=== PATIENT | male | born 1970 | race Two or more races ===

== ENCOUNTER 2021-10-27 17:58 | Inpatient (IN) | payer MEDICARE, MEDICAID ==
[~2021-10-27] VITALS: Ht 165.1 cm; Wt 51.6 kg
[2021-10-27 19:22] LABS: Basophils # (auto) 0 10 ^3/uL (0-0.2); Eosinophils # (auto) 0 10 ^3/uL (0-0.8); Eosinophils % (auto) 0.3 % (0.0-7.0); Monocytes # (auto) 0.7 10 ^3/uL (0-1.3); Neutrophils # (auto) 6.4 10 ^3/uL (1.6-8.6); Red Blood Cells 2.25 10^6/uL (4.5-5.90)
[2021-10-27 19:24] LABS: Basophils % (auto) 0.3 % (0.0-2.0); Hemoglobin 7.8 g/dL (13.5-17.5); Lymphocytes # (auto) 0 10 ^3/uL (0.4-5.4); Lymphocytes % (auto) 0.7 % (10.0-50.0); Mean Corpuscular Hemoglobin 34.6 pg (28.0-32.0); Mean Corpuscular Hgb Conc. 32.4 g/dL (32.0-36.0); Monocytes % (auto) 9.1 % (0.0-12.0); Neutrophils % (auto) 89.6 % (37.0-80.0); Nucleated Red Blood Cells % 0.1 %; Red Cell Distribution Width 17.2 % (11.8-14.3); White Blood Cell 7.1 10^3/uL (4.4-10.8)
[2021-10-27 19:35] LABS: Albumin 2.8 g/dL (3.4-5.0); Calcium 8.1 mg/dL (8.5-10.1); Potassium 3.3 mmol/L (3.5-5.1)
[2021-10-27 19:37] LABS: BUN/Creatinine Ratio 9.7
[2021-10-27 19:40] LABS: Bilirubin, Total 0.4 mg/dL (0.2-1.0); Total Protein 5.4 g/dL (6.4-8.2)
[2021-10-27 19:46] LABS: INR 0.99 (0.9-1.15); Partial Thromboplastin Time 33.1 sec (23.6-33.0)
[2021-10-27 20:32] LABS: Mean Corpuscular Volume 106.6 fL (80.0-100.0)
[2021-10-27] MEDS ORDERED: DEXTROSE (50%) 50ML SYRG IV PRN (21:45)
[2021-10-27] MEDS ORDERED: HYDROcodone-ACET 5/325MG TAB PO PRN (21:45)
[2021-10-27] MEDS ORDERED: ALBUMIN 25% 100 ML IV ONE (21:45)
[2021-10-27] MEDS ORDERED: ONDANSETRON HCL 4 MG/2 ML VIAL IV PRN (21:45)
[2021-10-27] MEDS ORDERED: DOCUSATE SOD 100 MG CAP PO PRN (21:45)
[2021-10-27] MEDS ORDERED: POTASSIUM CHL 20 Meq TABLET PO ONE (21:45)
[2021-10-27] MEDS ORDERED: FAMOTIDINE (10MG/ML) 2ML VL IV SCH (22:00)
[2021-10-27] MEDS: SODIUM CHLOR 0.9% PF (SALINE LOCK) 10ML VIAL/SYR IV SCH (22:31)
[2021-10-27] MEDS: ACCU-CHEK COMFORT CURVE STRIP VI SCH (22:32)
[2021-10-27] MEDS: HEPARIN SODIUM (PORCINE) 5000 UNITS/ML 1ML VIAL SC SCH (22:45)
[2021-10-27] MEDS: InsuLIN REG 1unit/0.01ml Soln (100units/ml) SC SCH (22:54)
[2021-10-27] MEDS ORDERED: MORPHINE SULFATE INJ 2 MG/ml SYRG IV PRN (23:15)
[2021-10-27] MEDS ORDERED: NITROGLYCERIN 0.4 MG SL TAB SL PRN (23:15)
[2021-10-28] MEDS: SODIUM CHLOR 0.9% PF (SALINE LOCK) 10ML VIAL/SYR IV SCH ×3 (06:05→22:23)
[2021-10-28] MEDS: ACCU-CHEK COMFORT CURVE STRIP VI SCH ×4 (06:47→22:19)
[2021-10-28] MEDS: InsuLIN REG 1unit/0.01ml Soln (100units/ml) SC SCH ×4 (06:47→22:22)
[2021-10-28 07:21] LABS: Basophils # (auto) 0 10 ^3/uL (0-0.2); Eosinophils # (auto) 0 10 ^3/uL (0-0.8); Eosinophils % (auto) 0.5 % (0.0-7.0); Hemoglobin 8.1 g/dL (13.5-17.5); Lymphocytes # (auto) 0.1 10 ^3/uL (0.4-5.4); Lymphocytes % (auto) 2.5 % (10.0-50.0)
[2021-10-28 07:24] LABS: Basophils % (auto) 0.4 % (0.0-2.0); Hematocrit 25.8 % (41.0-53.0); Mean Corpuscular Hemoglobin 34.2 pg (28.0-32.0); Mean Corpuscular Hgb Conc. 31.5 g/dL (32.0-36.0); Mean Corpuscular Volume 108.7 fL (80.0-100.0); Monocytes # (auto) 0.6 10 ^3/uL (0-1.3); Monocytes % (auto) 9.6 % (0.0-12.0); Neutrophils # (auto) 5.2 10 ^3/uL (1.6-8.6); Red Blood Cells 2.38 10^6/uL (4.5-5.90)
[2021-10-28 07:42] LABS: Calcium 8.3 mg/dL (8.5-10.1); Potassium 3.8 mmol/L (3.5-5.1)
[2021-10-28 07:48] LABS: Albumin 2.9 g/dL (3.4-5.0); BUN/Creatinine Ratio 9.2; Bilirubin, Total 0.4 mg/dL (0.2-1.0); Total Protein 5.6 g/dL (6.4-8.2)
[2021-10-28] MEDS: SEVELAMER 800 MG TAB PO SCH ×3 (08:30→19:47)
[2021-10-28] MEDS: FAMOTIDINE (10MG/ML) 2ML VL IV SCH (10:15)
[2021-10-28] MEDS: B-COMPLEX W/ C & FOLIC ACID(NEPHROVITE TAB) PO SCH (10:15)
[2021-10-28] MEDS: HEPARIN SODIUM (PORCINE) 5000 UNITS/ML 1ML VIAL SC SCH ×2 (10:26→22:21)
[2021-10-28 13:00] VITALS: BP 120/66
[2021-10-28] MEDS ORDERED: FOLI1TAB6 PO (14:43)
[2021-10-28] MEDS ORDERED: PRED15SO26 PO (14:43)
[2021-10-28] MEDS ORDERED: ASPI-543 PO (14:43)
[2021-10-28] MEDS ORDERED: MACI1TAB2 PO (14:43)
[2021-10-28] MEDS ORDERED: DIVA1TAB38 PO (14:43)
[2021-10-28] MEDS ORDERED: LACT10PA2 PO (14:43)
[2021-10-28] MEDS ORDERED: TRAZ-181 PO (14:43)
[2021-10-28] MEDS ORDERED: ALLO100T PO (14:43)
[2021-10-28] MEDS ORDERED: ATOR40TA52 PO (14:43)
[2021-10-28] MEDS ORDERED: PANT1INJ3 PO (14:43)
[2021-10-28] MEDS ORDERED: GLIP5TAB12 PO (14:43)
[2021-10-28] MEDS ORDERED: SEVE800T8 PO (14:43)
[2021-10-28] MEDS ORDERED: PRED10TA PO (14:43)
[2021-10-28] MEDS ORDERED: RISP0.5T17 PO (14:43)
[2021-10-28 16:40] VITALS: BP 112/58
[2021-10-28 22:00] VITALS: BP 104/51
[2021-10-29 05:00] VITALS: BP 109/50
[2021-10-29] MEDS: ACCU-CHEK COMFORT CURVE STRIP VI SCH ×4 (06:28→22:00)
[2021-10-29] MEDS: SODIUM CHLOR 0.9% PF (SALINE LOCK) 10ML VIAL/SYR IV SCH ×3 (06:29→21:16)
[2021-10-29 06:30] LABS: Basophils # (auto) 0 10 ^3/uL (0-0.2); Eosinophils # (auto) 0 10 ^3/uL (0-0.8); Eosinophils % (auto) 0.6 % (0.0-7.0); Hematocrit 23.3 % (41.0-53.0); Hemoglobin 7.6 g/dL (13.5-17.5); Lymphocytes # (auto) 0.2 10 ^3/uL (0.4-5.4); Monocytes # (auto) 0.5 10 ^3/uL (0-1.3); Neutrophils # (auto) 5.2 10 ^3/uL (1.6-8.6); Neutrophils % (auto) 87.7 % (37.0-80.0)
[2021-10-29 06:33] LABS: Basophils % (auto) 0.5 % (0.0-2.0); Mean Corpuscular Hemoglobin 35.2 pg (28.0-32.0); Mean Corpuscular Hgb Conc. 32.7 g/dL (32.0-36.0); Mean Corpuscular Volume 107.5 fL (80.0-100.0); Monocytes % (auto) 8.2 % (0.0-12.0); Nucleated Red Blood Cells % 0.1 %; Red Blood Cells 2.17 10^6/uL (4.5-5.90); Red Cell Distribution Width 17.7 % (11.8-14.3)
[2021-10-29 06:35] LABS: Potassium 4.5 mmol/L (3.5-5.1)
[2021-10-29 06:44] LABS: BUN/Creatinine Ratio 10.7; Calcium 8.2 mg/dL (8.5-10.1)
[2021-10-29] MEDS: InsuLIN REG 1unit/0.01ml Soln (100units/ml) SC SCH ×4 (07:00→22:21)
[2021-10-29] MEDS: SEVELAMER 800 MG TAB PO SCH ×3 (08:00→18:06)
[2021-10-29 08:41] VITALS: BP 115/56
[2021-10-29] MEDS ORDERED: LACTULOSE 20Gm/30ML SOLN PO PRN (12:15)
[2021-10-29] MEDS: B-COMPLEX W/ C & FOLIC ACID(NEPHROVITE TAB) PO SCH (12:41)
[2021-10-29] MEDS ORDERED: MIDODRINE HCL 10 MG TAB PO SCH (12:45)
[2021-10-29] MEDS: HEPARIN SODIUM (PORCINE) 5000 UNITS/ML 1ML VIAL SC SCH ×2 (12:51→21:12)
[2021-10-29 12:58] VITALS: BP 117/78
[2021-10-29 17:00] VITALS: BP_SYST 133; BP_DIAS 71; BP_DIAS 77
[2021-10-29 22:00] VITALS: BP 135/69
[2021-10-30 05:00] VITALS: BP 109/53
[2021-10-30] MEDS: SODIUM CHLOR 0.9% PF (SALINE LOCK) 10ML VIAL/SYR IV SCH ×3 (05:55→21:04)
[2021-10-30 06:11] LABS: Basophils # (auto) 0 10 ^3/uL (0-0.2); Eosinophils # (auto) 0 10 ^3/uL (0-0.8); Eosinophils % (auto) 0.5 % (0.0-7.0); Hemoglobin 8.6 g/dL (13.5-17.5); Lymphocytes # (auto) 0.2 10 ^3/uL (0.4-5.4); Mean Corpuscular Hgb Conc. 31.7 g/dL (32.0-36.0); Monocytes # (auto) 0.6 10 ^3/uL (0-1.3); Monocytes % (auto) 8.2 % (0.0-12.0); Red Cell Distribution Width 17.3 % (11.8-14.3)
[2021-10-30 06:15] LABS: Basophils % (auto) 0.2 % (0.0-2.0); Lymphocytes % (auto) 2.6 % (10.0-50.0); Mean Corpuscular Hemoglobin 34.6 pg (28.0-32.0); Mean Corpuscular Volume 108.9 fL (80.0-100.0); Neutrophils # (auto) 6.7 10 ^3/uL (1.6-8.6); Neutrophils % (auto) 88.5 % (37.0-80.0); Red Blood Cells 2.48 10^6/uL (4.5-5.90); White Blood Cell 7.6 10^3/uL (4.4-10.8)
[2021-10-30] MEDS: ACCU-CHEK COMFORT CURVE STRIP VI SCH ×4 (06:31→21:28)
[2021-10-30] MEDS: InsuLIN REG 1unit/0.01ml Soln (100units/ml) SC SCH ×4 (06:31→21:27)
[2021-10-30 06:38] LABS: Potassium 4.9 mmol/L (3.5-5.1)
[2021-10-30 06:55] LABS: BUN/Creatinine Ratio 10.8; Calcium 8.6 mg/dL (8.5-10.1)
[2021-10-30] MEDS ORDERED: SODIUM CHL 0.9% 1000 ML BAG XX ONE (07:00)
[2021-10-30 09:00] VITALS: BP 111/60
[2021-10-30] MEDS: B-COMPLEX W/ C & FOLIC ACID(NEPHROVITE TAB) PO SCH (10:03)
[2021-10-30] MEDS: SEVELAMER 800 MG TAB PO SCH ×3 (10:03→18:10)
[2021-10-30] MEDS: MIDODRINE HCL 10 MG TAB PO SCH (10:03)
[2021-10-30] MEDS: HEPARIN SODIUM (PORCINE) 5000 UNITS/ML 1ML VIAL SC SCH ×2 (10:04→21:03)
[2021-10-30] MEDS: FAMOTIDINE (10MG/ML) 2ML VL IV SCH (10:30)
[2021-10-30 13:00] VITALS: BP 140/73
[2021-10-30 17:00] VITALS: BP 150/86
[2021-10-30] MEDS ORDERED: EPOETIN ALFA-EPBX 10,000 UNIT/1ML VIAL SC ONE (21:00)
[2021-10-30 21:53] VITALS: BP 127/62
[2021-10-31 03:48] VITALS: BP 113/57
[2021-10-31] MEDS: SODIUM CHLOR 0.9% PF (SALINE LOCK) 10ML VIAL/SYR IV SCH ×3 (05:13→22:51)
[2021-10-31 05:43] LABS: Basophils # (auto) 0 10 ^3/uL (0-0.2); Basophils % (auto) 0.3 % (0.0-2.0); Eosinophils # (auto) 0 10 ^3/uL (0-0.8); Eosinophils % (auto) 0.4 % (0.0-7.0); Lymphocytes # (auto) 0.1 10 ^3/uL (0.4-5.4); Monocytes # (auto) 0.6 10 ^3/uL (0-1.3); Monocytes % (auto) 8.5 % (0.0-12.0)
[2021-10-31 05:46] LABS: Hemoglobin 8.1 g/dL (13.5-17.5); Mean Corpuscular Hemoglobin 34.2 pg (28.0-32.0); Mean Corpuscular Hgb Conc. 31.3 g/dL (32.0-36.0); Mean Corpuscular Volume 109.3 fL (80.0-100.0); Neutrophils % (auto) 88.8 % (37.0-80.0); Red Blood Cells 2.38 10^6/uL (4.5-5.90); Red Cell Distribution Width 17.5 % (11.8-14.3); White Blood Cell 6.8 10^3/uL (4.4-10.8)
[2021-10-31 06:04] LABS: Calcium 8.2 mg/dL (8.5-10.1); Potassium 3.7 mmol/L (3.5-5.1)
[2021-10-31] MEDS: InsuLIN REG 1unit/0.01ml Soln (100units/ml) SC SCH ×4 (06:26→22:52)
[2021-10-31] MEDS: ACCU-CHEK COMFORT CURVE STRIP VI SCH ×4 (06:26→22:51)
[2021-10-31] MEDS: SEVELAMER 800 MG TAB PO SCH ×3 (08:30→18:19)
[2021-10-31 09:00] VITALS: BP 126/63
[2021-10-31] MEDS: MIDODRINE HCL 10 MG TAB PO SCH (10:00)
[2021-10-31] MEDS: B-COMPLEX W/ C & FOLIC ACID(NEPHROVITE TAB) PO SCH (10:24)
[2021-10-31] MEDS: HEPARIN SODIUM (PORCINE) 5000 UNITS/ML 1ML VIAL SC SCH ×2 (10:32→22:52)
[2021-10-31 13:00] VITALS: BP 128/68
[2021-10-31 17:00] VITALS: BP 133/67
[2021-10-31 21:54] VITALS: BP 143/77
[2021-10-31] MEDS: PIPERACILLIN-TAZOB 2.25GM 50 ML IV SCH (22:51)
[2021-11-01 05:00] VITALS: BP 133/64
[2021-11-01 06:11] LABS: Eosinophils # (auto) 0 10 ^3/uL (0-0.8); Hemoglobin 7.7 g/dL (13.5-17.5); Lymphocytes # (auto) 0.2 10 ^3/uL (0.4-5.4); Monocytes # (auto) 0.8 10 ^3/uL (0-1.3)
[2021-11-01 06:13] LABS: Basophils # (auto) 0 10 ^3/uL (0-0.2); Basophils % (auto) 0.3 % (0.0-2.0); Eosinophils % (auto) 0.3 % (0.0-7.0); Hematocrit 24.3 % (41.0-53.0); Lymphocytes % (auto) 1.9 % (10.0-50.0); Mean Corpuscular Hemoglobin 34.5 pg (28.0-32.0); Mean Corpuscular Hgb Conc. 31.6 g/dL (32.0-36.0); Neutrophils # (auto) 10.1 10 ^3/uL (1.6-8.6); Neutrophils % (auto) 90.5 % (37.0-80.0); Red Blood Cells 2.23 10^6/uL (4.5-5.90); Red Cell Distribution Width 17.7 % (11.8-14.3); White Blood Cell 11.1 10^3/uL (4.4-10.8)
[2021-11-01] MEDS: ACCU-CHEK COMFORT CURVE STRIP VI SCH ×4 (06:19→21:35)
[2021-11-01] MEDS: SODIUM CHLOR 0.9% PF (SALINE LOCK) 10ML VIAL/SYR IV SCH ×3 (06:19→21:35)
[2021-11-01] MEDS: InsuLIN REG 1unit/0.01ml Soln (100units/ml) SC SCH ×4 (06:20→22:40)
[2021-11-01 06:21] LABS: Calcium 8.8 mg/dL (8.5-10.1)
[2021-11-01] MEDS ORDERED: SODIUM CHL 0.9% 1000 ML BAG XX ONE (07:00)
[2021-11-01] MEDS: SEVELAMER 800 MG TAB PO SCH ×3 (08:00→18:58)
[2021-11-01] MEDS ORDERED: LORazepam 2MG/ML-1ML VIAL IV PRN (09:30)
[2021-11-01 09:31] LABS: Folate (Folic Acid) > 24.00 ng/mL (5.38-24)
[2021-11-01] MEDS: FAMOTIDINE (10MG/ML) 2ML VL IV SCH (10:00)
[2021-11-01] MEDS: B-COMPLEX W/ C & FOLIC ACID(NEPHROVITE TAB) PO SCH (10:00)
[2021-11-01] MEDS: HEPARIN SODIUM (PORCINE) 5000 UNITS/ML 1ML VIAL SC SCH ×2 (10:00→21:34)
[2021-11-01] MEDS: PIPERACILLIN-TAZOB 2.25GM 50 ML IV SCH ×2 (10:00→21:34)
[2021-11-01] MEDS ORDERED: MIDODRINE HCL 10 MG TAB PO ONE (10:15)
[2021-11-01] MEDS: MIDODRINE HCL 10 MG TAB PO SCH (10:25)
[2021-11-01 16:00] VITALS: BP 158/78
[2021-11-01] MEDS ORDERED: PIPERACILLIN-TAZOB 2.25GM 0.75 GM in D5W 5% 50 ML IV ONE (16:00)
[2021-11-02 05:58] LABS: Basophils # (auto) 0 10 ^3/uL (0-0.2); Lymphocytes # (auto) 0.3 10 ^3/uL (0.4-5.4); Monocytes # (auto) 0.7 10 ^3/uL (0-1.3); White Blood Cell 8.2 10^3/uL (4.4-10.8)
[2021-11-02 06:02] LABS: Basophils % (auto) 0.4 % (0.0-2.0); Eosinophils # (auto) 0 10 ^3/uL (0-0.8); Eosinophils % (auto) 0.3 % (0.0-7.0); Hematocrit 27.4 % (41.0-53.0); Hemoglobin 8.6 g/dL (13.5-17.5); Lymphocytes % (auto) 3.9 % (10.0-50.0); Mean Corpuscular Hemoglobin 34.4 pg (28.0-32.0); Mean Corpuscular Hgb Conc. 31.5 g/dL (32.0-36.0); Mean Corpuscular Volume 109.3 fL (80.0-100.0); Monocytes % (auto) 8.6 % (0.0-12.0); Neutrophils # (auto) 7.1 10 ^3/uL (1.6-8.6); Neutrophils % (auto) 86.8 % (37.0-80.0); Red Cell Distribution Width 16.7 % (11.8-14.3)
[2021-11-02 06:27] LABS: Calcium 8.8 mg/dL (8.5-10.1); Potassium 4.3 mmol/L (3.5-5.1)
[2021-11-02 06:30] LABS: BUN/Creatinine Ratio 12.4
[2021-11-02] MEDS: ACCU-CHEK COMFORT CURVE STRIP VI SCH ×4 (06:54→22:03)
[2021-11-02] MEDS: InsuLIN REG 1unit/0.01ml Soln (100units/ml) SC SCH ×4 (06:54→22:00)
[2021-11-02] MEDS: SODIUM CHLOR 0.9% PF (SALINE LOCK) 10ML VIAL/SYR IV SCH ×3 (06:54→22:03)
[2021-11-02] MEDS: SEVELAMER 800 MG TAB PO SCH ×3 (08:00→18:20)
[2021-11-02 09:00] VITALS: BP 141/77
[2021-11-02] MEDS: PIPERACILLIN-TAZOB 2.25GM 50 ML IV SCH ×2 (09:00→22:02)
[2021-11-02] MEDS: HEPARIN SODIUM (PORCINE) 5000 UNITS/ML 1ML VIAL SC SCH ×2 (09:12→22:04)
[2021-11-02] MEDS: MIDODRINE HCL 10 MG TAB PO SCH (09:12)
[2021-11-02] MEDS: B-COMPLEX W/ C & FOLIC ACID(NEPHROVITE TAB) PO SCH (09:12)
[2021-11-02 13:00] VITALS: BP 111/67
[2021-11-02 16:35] VITALS: BP 120/69
[2021-11-02 22:00] VITALS: BP 104/62
[2021-11-03 05:00] VITALS: BP 118/63
[2021-11-03 05:23] LABS: Eosinophils # (auto) 0.1 10 ^3/uL (0-0.8); Lymphocytes # (auto) 0.2 10 ^3/uL (0.4-5.4); Monocytes # (auto) 0.4 10 ^3/uL (0-1.3)
[2021-11-03 05:25] LABS: Basophils # (auto) 0.1 10 ^3/uL (0-0.2); Eosinophils % (auto) 0.9 % (0.0-7.0); Hematocrit 27.2 % (41.0-53.0); Hemoglobin 8.4 g/dL (13.5-17.5); Lymphocytes % (auto) 4.2 % (10.0-50.0); Mean Corpuscular Hgb Conc. 30.8 g/dL (32.0-36.0); Mean Corpuscular Volume 110.4 fL (80.0-100.0); Monocytes % (auto) 6.9 % (0.0-12.0); Neutrophils # (auto) 5.1 10 ^3/uL (1.6-8.6); Red Blood Cells 2.46 10^6/uL (4.5-5.90); Red Cell Distribution Width 16.8 % (11.8-14.3); White Blood Cell 5.9 10^3/uL (4.4-10.8)
[2021-11-03 05:41] LABS: Calcium 8.8 mg/dL (8.5-10.1); Potassium 5.4 mmol/L (3.5-5.1)
[2021-11-03 05:43] LABS: BUN/Creatinine Ratio 13.4
[2021-11-03] MEDS: SODIUM CHLOR 0.9% PF (SALINE LOCK) 10ML VIAL/SYR IV SCH ×3 (06:59→20:54)
[2021-11-03] MEDS: ACCU-CHEK COMFORT CURVE STRIP VI SCH ×4 (06:59→21:11)
[2021-11-03] MEDS: InsuLIN REG 1unit/0.01ml Soln (100units/ml) SC SCH ×4 (07:00→20:49)
[2021-11-03] MEDS ORDERED: SODIUM CHL 0.9% 1000 ML BAG XX ONE (07:00)
[2021-11-03] MEDS: MIDODRINE HCL 10 MG TAB PO SCH (10:00)
[2021-11-03] MEDS: HEPARIN SODIUM (PORCINE) 5000 UNITS/ML 1ML VIAL SC SCH ×2 (10:00→21:17)
[2021-11-03] MEDS: FAMOTIDINE (10MG/ML) 2ML VL IV SCH (12:32)
[2021-11-03] MEDS: PIPERACILLIN-TAZOB 2.25GM 50 ML IV SCH ×2 (12:32→21:11)
[2021-11-03] MEDS: SEVELAMER 800 MG TAB PO SCH ×3 (12:32→17:44)
[2021-11-03] MEDS: B-COMPLEX W/ C & FOLIC ACID(NEPHROVITE TAB) PO SCH (12:33)
[2021-11-03 17:55] VITALS: BP 141/69
[2021-11-03] MEDS ORDERED: PIPERACILLIN-TAZOB 2.25GM 0.75 GM in D5W 5% 50 ML IV ONE (19:30)
[2021-11-03] MEDS ORDERED: EPOETIN ALFA-EPBX 4,000 UNIT/ML VIAL SC ONE (21:00)
[2021-11-03 22:05] VITALS: BP 119/59
[2021-11-03] MEDS: ACETAMINOPHEN 325 MG TAB PO PRN (23:25)
[2021-11-04 00:56] VITALS: BP 119/59
[2021-11-04 05:14] VITALS: BP 126/62
[2021-11-04] MEDS: SODIUM CHLOR 0.9% PF (SALINE LOCK) 10ML VIAL/SYR IV SCH ×3 (05:30→21:12)
[2021-11-04 05:49] LABS: Basophils # (auto) 0 10 ^3/uL (0-0.2); Eosinophils # (auto) 0.1 10 ^3/uL (0-0.8); Hemoglobin 7.2 g/dL (13.5-17.5); Lymphocytes # (auto) 0.3 10 ^3/uL (0.4-5.4); White Blood Cell 4.8 10^3/uL (4.4-10.8)
[2021-11-04 05:51] LABS: Basophils % (auto) 0.6 % (0.0-2.0); Eosinophils % (auto) 1.7 % (0.0-7.0); Hematocrit 22.7 % (41.0-53.0); Lymphocytes % (auto) 5.7 % (10.0-50.0); Mean Corpuscular Hemoglobin 34.4 pg (28.0-32.0); Mean Corpuscular Hgb Conc. 31.8 g/dL (32.0-36.0); Mean Corpuscular Volume 108.2 fL (80.0-100.0); Monocytes # (auto) 0.5 10 ^3/uL (0-1.3); Monocytes % (auto) 9.6 % (0.0-12.0); Neutrophils % (auto) 82.4 % (37.0-80.0); Red Cell Distribution Width 17.2 % (11.8-14.3)
[2021-11-04 06:11] LABS: BUN/Creatinine Ratio 13.7; Calcium 8.5 mg/dL (8.5-10.1); Potassium 5.2 mmol/L (3.5-5.1)
[2021-11-04] MEDS: InsuLIN REG 1unit/0.01ml Soln (100units/ml) SC SCH ×4 (06:33→21:21)
[2021-11-04] MEDS: ACCU-CHEK COMFORT CURVE STRIP VI SCH ×4 (06:34→21:22)
[2021-11-04 09:00] VITALS: BP 125/66
[2021-11-04] MEDS: SEVELAMER 800 MG TAB PO SCH ×3 (12:00→18:06)
[2021-11-04 13:00] VITALS: BP 150/81
[2021-11-04] MEDS: MIDODRINE HCL 10 MG TAB PO SCH (14:51)
[2021-11-04] MEDS: B-COMPLEX W/ C & FOLIC ACID(NEPHROVITE TAB) PO SCH (14:51)
[2021-11-04] MEDS: PIPERACILLIN-TAZOB 2.25GM 50 ML IV SCH ×2 (14:51→21:12)
[2021-11-04] MEDS: HEPARIN SODIUM (PORCINE) 5000 UNITS/ML 1ML VIAL SC SCH ×2 (14:52→21:12)
[2021-11-04 17:00] VITALS: BP 138/79
[2021-11-05 04:30] VITALS: BP 140/82
[2021-11-05] MEDS: SODIUM CHLOR 0.9% PF (SALINE LOCK) 10ML VIAL/SYR IV SCH ×3 (06:23→21:28)
[2021-11-05] MEDS: InsuLIN REG 1unit/0.01ml Soln (100units/ml) SC SCH ×4 (06:24→21:54)
[2021-11-05] MEDS: ACCU-CHEK COMFORT CURVE STRIP VI SCH ×4 (06:24→21:53)
[2021-11-05] MEDS: SEVELAMER 800 MG TAB PO SCH ×3 (08:46→17:18)
[2021-11-05] MEDS: PIPERACILLIN-TAZOB 2.25GM 50 ML IV SCH ×2 (08:47→21:28)
[2021-11-05] MEDS: MIDODRINE HCL 10 MG TAB PO SCH (08:47)
[2021-11-05] MEDS: B-COMPLEX W/ C & FOLIC ACID(NEPHROVITE TAB) PO SCH (08:47)
[2021-11-05] MEDS: HEPARIN SODIUM (PORCINE) 5000 UNITS/ML 1ML VIAL SC SCH ×2 (08:56→21:28)
[2021-11-05] MEDS: FAMOTIDINE (10MG/ML) 2ML VL IV SCH (12:24)
[2021-11-05 22:00] VITALS: BP 136/75
[2021-11-06] MEDS: ACETAMINOPHEN 325 MG TAB PO PRN (00:05)
[2021-11-06 05:00] VITALS: BP 140/75
[2021-11-06] MEDS: SODIUM CHLOR 0.9% PF (SALINE LOCK) 10ML VIAL/SYR IV SCH ×2 (05:33→14:09)
[2021-11-06] MEDS: ACCU-CHEK COMFORT CURVE STRIP VI SCH ×3 (06:37→16:02)
[2021-11-06] MEDS: InsuLIN REG 1unit/0.01ml Soln (100units/ml) SC SCH ×3 (06:37→16:29)
[2021-11-06] MEDS ORDERED: CALCIUM GLUC 1,000mg/50ml-NS 50 ML IV ONE (07:00)
[2021-11-06] MEDS: SEVELAMER 800 MG TAB PO SCH ×3 (07:29→17:51)
[2021-11-06 09:00] VITALS: BP 111/68
[2021-11-06] MEDS: PIPERACILLIN-TAZOB 2.25GM 50 ML IV SCH (09:25)
[2021-11-06] MEDS: B-COMPLEX W/ C & FOLIC ACID(NEPHROVITE TAB) PO SCH (09:25)
[2021-11-06] MEDS: HEPARIN SODIUM (PORCINE) 5000 UNITS/ML 1ML VIAL SC SCH (09:26)
[2021-11-06] MEDS: MIDODRINE HCL 10 MG TAB PO SCH (10:00)
[2021-11-06 13:00] VITALS: BP 117/78
[2021-11-06 17:16] VITALS: BP 117/78
[2021-11-07] MEDS ORDERED: SODIUM CHL 0.9% 1000 ML BAG XX ONE (07:00)
== END 2021-11-06 18:55 | disposition home health service (06) | DRG 177 ==
LOC: EDSEX 17:58 → ER 17:58 → EDBD 17:58 → TELE 23:08 → TELE-EAST 10-28 12:26
PROVIDERS: ADMIT Nurse Practitioner Family; ATTEND Family Medicine
PROC: 5A09357 Assistance with Respiratory Ventilation, Less than 24 Consecutive Hours, Continuous Positive Airway Pressure (ICD-10-PCS; principal; 2021-10-30)
PROC: 5A1D70Z Performance of Urinary Filtration, Intermittent, Less than 6 Hours Per Day (ICD-10-PCS; 2021-10-30)
PROC: 5A09357 Assistance with Respiratory Ventilation, Less than 24 Consecutive Hours, Continuous Positive Airway Pressure (ICD-10-PCS; 2021-10-31)
PROC: 4B02XSZ Measurement of Cardiac Pacemaker, External Approach (ICD-10-PCS; 2021-10-31)
PROC: 5A09357 Assistance with Respiratory Ventilation, Less than 24 Consecutive Hours, Continuous Positive Airway Pressure (ICD-10-PCS; 2021-11-01)
PROC: 5A1D70Z Performance of Urinary Filtration, Intermittent, Less than 6 Hours Per Day (ICD-10-PCS; 2021-11-01)
PROC: 5A09357 Assistance with Respiratory Ventilation, Less than 24 Consecutive Hours, Continuous Positive Airway Pressure (ICD-10-PCS; 2021-11-02)
PROC: 5A09357 Assistance with Respiratory Ventilation, Less than 24 Consecutive Hours, Continuous Positive Airway Pressure (ICD-10-PCS; 2021-11-03)
PROC: 5A09357 Assistance with Respiratory Ventilation, Less than 24 Consecutive Hours, Continuous Positive Airway Pressure (ICD-10-PCS; 2021-11-04)
PROC: 5A1D70Z Performance of Urinary Filtration, Intermittent, Less than 6 Hours Per Day (ICD-10-PCS; 2021-11-04)
PROC: 5A09357 Assistance with Respiratory Ventilation, Less than 24 Consecutive Hours, Continuous Positive Airway Pressure (ICD-10-PCS; 2021-11-05)
PROC: 5A09357 Assistance with Respiratory Ventilation, Less than 24 Consecutive Hours, Continuous Positive Airway Pressure (ICD-10-PCS; 2021-11-06)
DX: J69.0 Pneumonitis due to inhalation of food and vomit (principal); G93.41 Metabolic encephalopathy; J96.01 Acute respiratory failure with hypoxia; N18.6 End stage renal disease; I12.0 Hypertensive chronic kidney disease with stage 5 chronic kidney disease or end stage renal disease; E44.0 Moderate protein-calorie malnutrition; E87.2 Acidosis; D64.9 Anemia, unspecified; E11.65 Type 2 diabetes mellitus with hyperglycemia; E11.22 Type 2 diabetes mellitus with diabetic chronic kidney disease; H54.7 Unspecified visual loss; R77.8 Other specified abnormalities of plasma proteins; I25.10 Atherosclerotic heart disease of native coronary artery without angina pectoris; Z82.49 Family history of ischemic heart disease and other diseases of the circulatory system; Z99.2 Dependence on renal dialysis; Z83.3 Family history of diabetes mellitus; Z86.79 Personal history of other diseases of the circulatory system; Z95.0 Presence of cardiac pacemaker; Z95.1 Presence of aortocoronary bypass graft
CPT/HCPCS: 36415; 36600; 70450; 70551; 71045; 80048; 80053; 82270; 82607; 82746; 82805; 82962; 83036; 83880; 84443; 84484; 85025; 85610; 85730; 87081; 87340; 90935; 93005; 93306; 94660; 95819; 96365; 97110; 97116; 97163; 97530; 99291; G0378; J1815; J2543; J3490; J7060; P9047